=== PATIENT | female | born 1995 ===

== ENCOUNTER 2020-01-01 08:30 | Inpatient (IN) | payer OTHER ==
[2020-01-01] MEDS ORDERED: PROMETHAZINE HCL 25 MG/1 ML VIAL IVPUSH ONE (10:24)
[2020-01-01] MEDS ORDERED: BUTORPHANOL TARTRATE 1 MG/ML VIAL IVPB ONE (10:24)
[2020-01-01] MEDS ORDERED: DINOPROSTONE 10 MG VAGINAL SUPPOSITORY VG ONE (10:31)
--- NOTE | 2020-01-01 10:37 | HP ---
Past Medical History - Primary Care Physician PCP:: Floridalma Sanchez - Admission Chief Complaint: scheduled IOL due to GDMA1 History Source: Patient Limitations to Obtaining History: No Limitations - Past Medical History ...: 2 ...Para: 1 ... Weeks Gestation by Dates: 39.5 ...EDC by Sono: 01/03/20 - Past Surgical History Past Surgical History: Yes: Cholecystectomy Hx Myomectomy: No Hx Transabdominal Cerclage: No - Smoking History Smoking history: Never smoked - Alcohol/Substance Use Hx Alcohol Use: No History of Substance Use: reports: None - Social History Usual Living Arrangement: Yes: With Spouse History of Recent Travel: No Home Medications - Allergies Allergies/Adverse Reactions: Allergies Allergy/AdvReac Type Severity Reaction Status Date / Time No Known Allergies Allergy Verified 01/01/20 10:14 - Home Medications Home Medications: Ambulatory Orders Vitamins (Sjr) - 1 tab PO DAILY 01/01/20 Review of Systems - Review of Systems Constitutional: reports: No Symptoms Cardiovascular: reports: No Symptoms Respiratory: reports: No Symptoms Gastrointestinal: reports: No Symptoms Genitourinary: reports: No Symptoms Breasts: reports: No Symptoms Reported Musculoskeletal: reports: No Symptoms Neurological: reports: No Symptoms Psychiatric: reports: No Symptoms Physical Exam - Maternity Constitutional: Yes: Well Nourished, No Distress, Calm Cardiovascular: Yes: Regular Rate and Rhythm Lungs: Clear to auscultation Breast(s): Yes: WNL - Abdominal Exam/OB Fundal Height: 40 Number of Fetuses: Single Presentation: Vertex Contractions: No Monitor Mode: External Category: I - Vaginal Exam/OB Vaginal Bleeding: No Dilatation (cm): 0 Effacement (%): 0 Presentation: Vertex/Position Station: -3 - Physical Exam Musculoskeletal: Yes: WNL Extremities: Yes: WNL Edema: No ...Motor Strength: WNL Psychiatric: Yes: Alert, Oriented Assessment/Plan 24 y/o at 39w5d with GDMA1 scheduled for IOL. Fetus with lower thoracic hemivertebra - Neonatology notified. Admit to L&D Cervical ripening with cervidil
[2020-01-01 10:38] VITALS: BMI 31.3
[2020-01-01] MEDS ORDERED: AMPICILLIN - 2 GM in SODIUM CHLORIDE 100 ML IVPB ONE (10:38)
[2020-01-01] MEDS: ELECTROLYTE-148 SOLN 1,000 ML IV SCH (11:00)
[2020-01-01 13:06] LABS: BASO % 0.3 % (0-2.0); EOS % 1.2 % (0-4.5); HEMATOCRIT 36.8 % (32.4-45.2); HEMOGLOBIN 12.6 GM/dL (10.7-15.3); LYMPH % 16.4 % (8-40); MCH 32.1 pg (25.7-33.7); MCHC 34.2 g/dl (32.0-36.0); MEAN CELL VOLUME 94.1 fl (80-96); MEAN PLT VOLUME 8.2 fl (7.5-11.1); MONO % 4.8 % (3.8-10.2); NEUT % 77.3 % (42.8-82.8); PLATELET COUNT 274 K/MM3 (134-434); RBC 3.91 M/mm3 (3.60-5.2); RDW 15.5 % (11.6-15.6); WHITE BLOOD COUNT 8.9 K/mm3 (4.0-10.0)
[2020-01-01 13:15] LABS: INR 0.92 (0.83-1.09); PROTHROMBIN TIME (PATIENT) 10.8 SEC (9.7-13.0)
[2020-01-01 13:18] LABS: ACTIVATED PTT 28.3 SECONDS (25.2-36.5)
[2020-01-01 13:52] LABS: BLOOD UREA NITROGEN 6.6 mg/dL (7-18); CALCIUM 9.3 mg/dL (8.5-10.1); CREATININE 0.5 mg/dL (0.55-1.3); POTASSIUM 4.2 mmol/L (3.5-5.1)
[2020-01-01] MEDS ORDERED: AMPICILLIN - 1 GM in SODIUM CHLORIDE 100 ML IVPB SCH (14:30)
[2020-01-01] MEDS ORDERED: AMPICILLIN SODIUM 2 GM VIAL ONE (18:13)
[2020-01-01] MEDS ORDERED: AMPICILLIN SODIUM 1 GM VIAL ONE (22:08)
[2020-01-01] MEDS ORDERED: PROMETHAZINE HCL 25 MG/1 ML VIAL ONE (22:09)
[2020-01-01] MEDS ORDERED: BUTORPHANOL TARTRATE 2 MG/ML VIAL ONE (22:09)
[2020-01-01] MEDS: AMPICILLIN - 1 GM in SODIUM CHLORIDE 100 ML IVPB SCH (22:15)
--- NOTE | 2020-01-01 23:30 | PD.OB.PROG ---
Past Medical History - Primary Care Physician PCP:: Floridalma Sanchez Documenting Provider Type: Laborist - Admission Chief Complaint: for induction. 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 Weeks Gestation by Dates: 39.5 ...EDC by Dates: 01/03/20 ...EDC by Sono: 01/03/20 Heme/Onc: Denies/None Infectious Disease: Denies/None Psych: Denies/None Musculoskeletal: Denies/None Rheumatology: Denies/None ENT: Denies/None Endocrine: Denies/None Dermatology: Denies/None - Past Surgical History Past Surgical History: Yes: Cholecystectomy - Smoking History Smoking history: Never smoked - Alcohol/Substance Use Hx Alcohol Use: No History of Substance Use: reports: None - Social History History of Recent Travel: No Review of Systems - Review of Systems Constitutional: reports: No Symptoms Eyes: reports: No Symptoms HENT: reports: No Symptoms Neck: reports: No Symptoms Cardiovascular: reports: No Symptoms Respiratory: reports: No Symptoms Gastrointestinal: reports: No Symptoms Genitourinary: reports: No Symptoms Breasts: reports: No Symptoms Reported Musculoskeletal: reports: No Symptoms Integumentary: reports: No Symptoms Neurological: reports: No Symptoms Endocrine: reports: No Symptoms Hematology/Lymphatic: reports: No Symptoms Psychiatric: reports: No Symptoms Physical Exam - Obstetrical Vital Signs: Vital Signs Temperature 98.9 F 01/01/20 22:00 Pulse Rate 54 L 01/01/20 22:00 Respiratory Rate 18 01/01/20 22:00 Blood Pressure 116/71 01/01/20 22:00 O2 Sat by Pulse Oximetry (%) Constitutional: Yes: Well Nourished, No Distress, Calm Eyes: Yes: WNL, Conjunctiva Clear, EOM Intact HENT: Yes: WNL, Atraumatic, Normocephalic Neck: Yes: WNL, Supple, Trachea Midline Cardiovascular: Yes: WNL, Regular Rate and Rhythm Lungs: Clear to auscultation Breast(s): Yes: WNL - Abdominal Exam/OB Fundal Height: 40 Number of Fetuses: Single Presentation: Vertex Contractions: Yes Regularity: Regular Intensity: Mild/Mod Monitor Mode: External Heart Rate (range): 140 Heart Rate Location: [facility] Category: I Accelerations: Uniform Decelerations: None - Vaginal Exam/OB Vaginal Exam Deferred: No Vaginal Bleeding: No Dilatation (cm): 2 Effacement (%): 50 Amniotic Membrane Status: Intact Station: -2 (very posterior) - Physical Exam Musculoskeletal: Yes: WNL Extremities: Yes: WNL - Labs Lab Results: CBC, BMP 01/01/20 12:40 01/01/20 12:40 Problem List - Problems (1) Term Code(s): Z34.90 - ENCNTR FOR SUPRVSN OF NORMAL , UNSP, UNSP TRIMESTER (2) GDM (gestational diabetes mellitus), class A1 Code(s): O24.410 - GESTATIONAL DIABETES MELLITUS IN , DIET CONTROLLED (3) Encounter for induction of labor Code(s): Z34.90 - ENCNTR FOR SUPRVSN OF NORMAL , UNSP, UNSP TRIMESTER Assessment/Plan Pt examined. Responding to cervidil. New cervidil placed as requested by DR. Sanchez. Discussed w couple. May be ready for AROM, oxytocin in couple of hours.
[2020-01-02] MEDS: AMPICILLIN - 1 GM in SODIUM CHLORIDE 100 ML IVPB SCH ×4 (02:30→14:15)
[2020-01-02] MEDS ORDERED: AMPICILLIN SODIUM 1 GM VIAL ONE ×4 (02:47→14:26)
[2020-01-02] MEDS ORDERED: PROMETHAZINE HCL 25 MG/1 ML VIAL ONE (08:43)
[2020-01-02] MEDS ORDERED: BUTORPHANOL TARTRATE 2 MG/ML VIAL ONE (08:43)
--- NOTE | 2020-01-02 08:43 | PN ---
Progress Note (short form) - Note Progress Note: cervix 3cm 75% effeaced vertex -2 AROM light meconeum. tracing reactive with good variability accelerations no decelerations category I at 1450 BPM plan oxytocin augmentation as well as pain mangment.
[2020-01-02] MEDS ORDERED: PROMETHAZINE HCL 25 MG/1 ML VIAL IVPB ONE (08:44)
[2020-01-02] MEDS ORDERED: BUTORPHANOL TARTRATE 1 MG/ML VIAL IVPB ONE (08:44)
[2020-01-02] MEDS ORDERED: OXYTOCIN 30 UNITS in 0.9% NS 30 UNIT/500 ML INFUS.BAG IVPB SCH (08:45)
[2020-01-02] MEDS ORDERED: OXYTOCIN 30 UNITS in 0.9% NS 30 UNIT/500 ML INFUS.BAG IVPB ONE (09:06)
[2020-01-02] MEDS ORDERED: FENTANYL/BUPIVACAINE/NS/PF - PCEA - 50 ML DISP.SYRIN EP ONE (11:21)
[2020-01-02] MEDS ORDERED: NALOXONE HCL 0.4 MG/ML VIAL IVPUSH PRN (12:14)
[2020-01-02] MEDS ORDERED: FENTANYL/BUPIVACAINE/NS/PF - PCEA - 50 ML DISP.SYRIN EP SCH (12:15)
[2020-01-02] MEDS ORDERED: BUPIVACAINE HCL/PF 0.25% (2.5MG/ML) 10 ML VIAL ONE (12:19)
[2020-01-02] MEDS: ELECTROLYTE-148 SOLN 1,000 ML IV SCH (13:22)
[2020-01-02] MEDS ORDERED: CITRIC ACID/SODIUM CITRATE 30 ML UNIT-DOSE CUP PO ONE (14:28)
--- NOTE | 2020-01-02 14:28 | PN ---
Progress Note (short form) - Note Progress Note: tracing with persistent variable decelerations category II cervix 6 cm with head at -1 station remote from delivery plan delivery.
[2020-01-02] MEDS ORDERED: LIDO 2%/EPI 1:200000 PRESRVFRE (20 ML SDVIAL) ONE (14:55)
[2020-01-02] MEDS ORDERED: OXYTOCIN 20 UNITS in 0.9% NS 40 UNIT/2,000 ML INFUS.BAG IV ONE (15:00)
[2020-01-02] MEDS ORDERED: ceFAZolin SODIUM 1 GM VIAL ONE (15:14)
[2020-01-02] MEDS ORDERED: OXYTOCIN 10 UNITS/ML VIAL ONE (15:19)
[2020-01-02] MEDS ORDERED: morphine SULFATE/PF 0.5 MG/ML (2cc Syringe - QUVA) ONE ×3 (15:36)
[2020-01-02] MEDS ORDERED: ONDANSETRON 4 MG/2 ML VIAL IVPUSH PRN (15:42)
--- NOTE | 2020-01-02 15:50 | OP ---
Operative Note - Note: Operative Date: 01/02/20 Pre-Operative Diagnosis: non reassurring tracing remote from delivery Operation: primary section. pfanensteel abdominal. low transvers euterine incision Findings: baby girl Post-Operative Diagnosis: Same as Pre-op Surgeon: Bessy Lewis Rn Teacher: Rikki Hutson Anesthesia: Spinal Specimens Removed: none Estimated Blood Loss (mls): 600 Operative Report Dictated: Yes
[2020-01-02] MEDS ORDERED: CARBOPROST TROMETHAMINE 250 MCG/ML AMPUL IM ONE (15:53)
[2020-01-02] MEDS ORDERED: METHYLERGONOVINE MALEATE 0.2 MG/1 ML AMP IM ONE (15:54)
[2020-01-02] MEDS ORDERED: MISOPROSTOL 200 MCG TABLET NR ONE (16:30)
[2020-01-02] MEDS ORDERED: KETOROLAC TROMETHAMINE 30 MG/1 ML VIAL ONE (19:41)
[2020-01-02] MEDS: KETOROLAC TROMETHAMINE 30 MG/1 ML VIAL IVPB PRN (19:50)
--- NOTE | 2020-01-03 07:18 | PN ---
Progress Note (short form) - Note Progress Note: Anesthesia Procedure Note epidural catheter kept inplace post op because of post op bleeding from boggy uterus. After six hours, bleeding risk was deemed to be minimal and catheter was removed at bedside, tip in tact, site clean and dry.
[2020-01-03] MEDS: KETOROLAC TROMETHAMINE 30 MG/1 ML VIAL IVPB PRN ×2 (07:27→14:28)
[2020-01-03 08:43] LABS: BASO % 0.1 % (0-2.0); HEMATOCRIT 29.5 % (32.4-45.2); HEMOGLOBIN 9.6 GM/dL (10.7-15.3); MCH 31.1 pg (25.7-33.7); MCHC 32.7 g/dl (32.0-36.0); MEAN CELL VOLUME 94.9 fl (80-96); MONO % 6.1 % (3.8-10.2); NEUT % 85.8 % (42.8-82.8); PLATELET COUNT 194 K/MM3 (134-434); RDW 15.4 % (11.6-15.6)
--- NOTE | 2020-01-03 12:55 | PN ---
Post Progress Note Post Day: 1 Type of Delivery: Primary C/S Vital Signs: Vital Signs Temperature 98.5 F 01/03/20 10:00 Pulse Rate 90 01/03/20 10:00 Respiratory Rate 20 01/03/20 12:00 Blood Pressure 120/75 01/03/20 10:00 O2 Sat by Pulse Oximetry (%) 96 01/02/20 22:00 Breast Exam: Yes: Soft Uterus: Yes: Fundus Firm, Fundus below umbilicus, Non-tender Incision: Yes: Dressing dry and intact Abdomen/GI: Yes: Abdomen soft, Tolerating PO Lochia: Yes: Rubra Lochia, amount: Small Extremities: Yes: Calves non-tender Perineum: Yes: Intact Activity: Ambulating - Labs Labs: CBC WBC 13.0 K/mm3 (4.0-10.0) H 01/03/20 08:11 RBC 3.10 M/mm3 (3.60-5.2) L 01/03/20 08:11 Hgb 9.6 GM/dL (10.7-15.3) L 01/03/20 08:11 Hct 29.5 % (32.4-45.2) L D 01/03/20 08:11 MCV 94.9 fl (80-96) 01/03/20 08:11 MCH 31.1 pg (25.7-33.7) 01/03/20 08:11 MCHC 32.7 g/dl (32.0-36.0) 01/03/20 08:11 RDW 15.4 % (11.6-15.6) 01/03/20 08:11 Plt Count 194 K/MM3 (134-434) D 01/03/20 08:11 MPV 8.0 fl (7.5-11.1) 01/03/20 08:11 Absolute Neuts (auto) 11.2 K/mm3 (1.5-8.0) H 01/03/20 08:11 Neutrophils % 85.8 % (42.8-82.8) H 01/03/20 08:11 Lymphocytes % 8.0 % (8-40) D 01/03/20 08:11 Monocytes % 6.1 % (3.8-10.2) 01/03/20 08:11 Eosinophils % 0.0 % (0-4.5) D 01/03/20 08:11 Basophils % 0.1 % (0-2.0) 01/03/20 08:11 Nucleated RBC % 0 % (0-0) 01/03/20 08:11 Assessment/Plan S/P delivery, pod # 1, reports not passing flatus. Delayed return of bowel function Encourage ambulation and incentive spirometer Continue other management.
[2020-01-03] MEDS ORDERED: BISACODYL 10 MG SUPP.RECT RC PRN (15:51)
[2020-01-03] MEDS: ELECTROLYTE-148 SOLN 1,000 ML IV SCH (19:58)
[2020-01-03] MEDS: OXYTOCIN 20 UNITS in 0.9% NS 20 UNIT/1,000 ML INFUS.BAG IV SCH ×2 (19:58→19:59)
[2020-01-03] MEDS: IBUPROFEN 600 MG TABLET (FP) PO PRN (20:48)
[2020-01-03] MEDS: SIMETHICONE 80 MG TAB.CHEW (FP) PO PRN (20:48)
[2020-01-04] MEDS: IBUPROFEN 600 MG TABLET (FP) PO PRN ×2 (01:33→09:59)
[2020-01-04] MEDS: SIMETHICONE 80 MG TAB.CHEW (FP) PO PRN ×2 (01:33→10:00)
--- NOTE | 2020-01-04 06:29 | PN ---
Progress Note (short form) - Note Progress Note: Pt. seen and examined s/p under epidural anesthesia with epidural duramorph. Pt. doing well this am. No anesthesia related complications.
--- NOTE | 2020-01-04 08:03 | PN ---
Post Progress Note Post Day: 2 Type of Delivery: Primary C/S Vital Signs: Vital Signs Temperature 99.1 F 01/03/20 22:00 Pulse Rate 85 01/03/20 22:00 Respiratory Rate 18 01/03/20 22:00 Blood Pressure 119/77 01/03/20 22:00 O2 Sat by Pulse Oximetry (%) 96 01/02/20 22:00 Breast Exam: Yes: Soft Uterus: Yes: Fundus Firm, Fundus below umbilicus, Non-tender Incision: Yes: [place] intact Abdomen/GI: Yes: Abdomen soft, Tolerating PO Lochia: Yes: Rubra Lochia, amount: Small Extremities: Yes: Calves non-tender Perineum: Yes: Intact Activity: Ambulating - Labs Labs: CBC WBC 13.0 K/mm3 (4.0-10.0) H 01/03/20 08:11 RBC 3.10 M/mm3 (3.60-5.2) L 01/03/20 08:11 Hgb 9.6 GM/dL (10.7-15.3) L 01/03/20 08:11 Hct 29.5 % (32.4-45.2) L D 01/03/20 08:11 MCV 94.9 fl (80-96) 01/03/20 08:11 MCH 31.1 pg (25.7-33.7) 01/03/20 08:11 MCHC 32.7 g/dl (32.0-36.0) 01/03/20 08:11 RDW 15.4 % (11.6-15.6) 01/03/20 08:11 Plt Count 194 K/MM3 (134-434) D 01/03/20 08:11 MPV 8.0 fl (7.5-11.1) 01/03/20 08:11 Absolute Neuts (auto) 11.2 K/mm3 (1.5-8.0) H 01/03/20 08:11 Neutrophils % 85.8 % (42.8-82.8) H 01/03/20 08:11 Lymphocytes % 8.0 % (8-40) D 01/03/20 08:11 Monocytes % 6.1 % (3.8-10.2) 01/03/20 08:11 Eosinophils % 0.0 % (0-4.5) D 01/03/20 08:11 Basophils % 0.1 % (0-2.0) 01/03/20 08:11 Nucleated RBC % 0 % (0-0) 01/03/20 08:11 Assessment/Plan S/P delivery, with slow return of bowel function Encourage ambulation and incentive spirometer Continue other management.
[2020-01-04 09:34] VITALS: BP 112/75; PULSE 96; TEMP 98
--- NOTE | 2020-01-04 11:49 | OP ---
DATE OF OPERATION: 01/02/2020 PREOPERATIVE DIAGNOSIS: Nonreassuring tracing distant from delivery. POSTOPERATIVE DIAGNOSIS: Nonreassuring tracing distant from delivery. PROCEDURE: Primary section through a Pfannenstiel abdominal low transverse uterine incision. SURGEON: Trenton Villaseñor MD RESIDENTIAL RECYCLE DRIVER: Rikki Hutson MD ANESTHESIA: Spinal. PROCEDURE: Following the successful induction of spinal anesthesia, patient placed in dorsal supine position, was prepped and draped in the usual aseptic fashion for this type of procedure. A Pfannenstiel abdominal incision was made and was carried down to the level of the fascia. Fascia was identified and entered. Peritoneum was identified and entered. Upon entering the peritoneal cavity uterus was identified and a bladder flap was created using smooth pickups and Metzenbaum scissors. Following this, a low transverse uterine incision was made and a baby girl was delivered to the endodontic assistant in attendance. The cord was wrapped around the neck tight x1. Following this, placental membranes were removed and the intrauterine contents were cleaned using a dry lap pad. Then the uterine incision was identified using T clamps, then was closed No. 1 Vicryl in a continuous stitch locking every stitch. There was excellent hemostasis at the end of the procedure. At this time the uterus was noted to be boggy. Patient was given Methergine IM. The uterus was massaged followed by 250 mcg of Hemabate . Following this, the fascia was closed using No. 1 Vicryl in a continuous stitch locking every stitch. Skin incision was then closed using michela. Following this, 800 mg of Cytotec were placed in the patient's rectum for prevention of hemorrhage. Case was then terminated. All instruments were removed. Bandages were applied and case was terminated. Correct counts x2. TRENTON VILLASEÑOR MD /[id number]
--- NOTE | 2020-01-04 15:41 | DS ---
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: Vital Signs Temperature 98 F 01/04/20 09:00 Pulse Rate 96 H 01/04/20 09:00 Respiratory Rate 18 01/04/20 09:00 Blood Pressure 112/75 01/04/20 09:00 O2 Sat by Pulse Oximetry (%) 96 01/02/20 22:00 Constitutional: Yes: Well Nourished Eyes: Yes: WNL HENT: Yes: WNL Neck: Yes: WNL Cardiovascular: Yes: WNL Respiratory: Yes: WNL Internal Exam Deferred: Yes Uterus: Yes: Firm ....Post : Yes: Uterus non-tender, Slight lochia rubra Edema: No Labs: CBC, BMP 01/03/20 08:11 01/01/20 12:40 Delivery - Delivery Section: Primary Type of Anesthesia: Epidural Episiotomy/Laceration: None EBL (cc): 600 Delivery, Single - Stages of Labor Date 1st Stage Initiatied: 01/01/20 Time 1st Stage Initiated: 22:00 Date of Delivery: 01/02/20 Time of Delivery: 15:22 Time Placenta Delivered: 15:24 - Condition of Infant 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: Yes Name: Pily Velazquez Gender: Female Weight: 3.657 kg Position: Right, OT Total Hours ROM (Hrs/Mins): 6hrs 42min - 1 Minute Total Score: 9 5 Minutes Total Score: 9 - [place] Feeding Plan Initial Plan: Elected not to breastfeed exclusively throughout hospitalization Remarks - Remarks Remarks: primary c section by Dr Lewis for category 2 tracing Discharge Summary Problems reviewed: Yes Reason For Visit: INDUCTION OF LABOR Current Active Problems Encounter for induction of labor (Acute) GDM (gestational diabetes mellitus), class A1 (Acute) Term (Acute) Condition: Good - Instructions - Home Medications Comprehensive Discharge Medication List: Ambulatory Orders Vitamins (Sjr) - 1 tab PO DAILY 01/01/20 Prescription Drug Monitoring Program (I-STOP) results: I-STOP reviewed and no issues identified (office visit Saturday or Saturday)
--- NOTE | 2020-01-07 18:43 | PATH ---
Surgical Pathology Report Patient Name: RICHY EDOUARD Med. Rec. 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 Specimen(s) Received PLACENTA Clinical History , 39.6 gestational weeks, nonreassuring heart rate Final Diagnosis PLACENTA, SECTION: 450 G THIRD TRIMESTER PLACENTA WITH TRIVASCULAR UMBILICAL CORD AND UNREMARKABLE PLACENTAL MEMBRANES. Electronically Signed Luz Prescott M.D. Gross Description The specimen is received fresh labeled placenta and is a 450 gram, 17.5 x 15.5 x 2.8 cm. placenta with attached membranes and umbilical cord. The attached membranes are munoz, translucent with focal opacities and insert marginally. The umbilical cord measures 36 cm. in length and averages 1 cm. in diameter. The cord inserts eccentrically, 4.5 cm. to the nearest margin. No true knots or strictures are identified. Cut surface of the umbilical cord reveals 3 vessels. The surface is resendez-blue with minimal fibrin deposition and appropriate caliber vessels. The maternal surface is red-brown with focal defects. Sectioning reveals red-brown, spongy parenchyma. No lesions are identified. Egyptologist sections are submitted in three cassettes as follows: 1- membrane rolls and umbilical cord; 2-3- full thickness sections of placenta. 01/06/2020 [facility]01/06/2020
== END 2020-01-04 16:45 | disposition home or self-care (01) | DRG 540 ==
LOC: JLDR 08:30 → J3W 01-02 20:30
PROVIDERS: ADMIT Obstetrics & Gynecology; ATTEND Obstetrics & Gynecology
PROC: 3E0P7VZ Introduction of Hormone into Female Reproductive, Via Natural or Artificial Opening (ICD-10-PCS; 2020-01-01)
PROC: 10D00Z1 Extraction of Products of Conception, Low, Open Approach (ICD-10-PCS; principal; 2020-01-02)
PROC: 10907ZC Drainage of Amniotic Fluid, Therapeutic from Products of Conception, Via Natural or Artificial Opening (ICD-10-PCS; 2020-01-02)
DX: O82 Encounter for cesarean delivery without indication (principal); O76 Abnormality in fetal heart rate and rhythm complicating labor and delivery; O24.420 Gestational diabetes mellitus in childbirth, diet controlled; Z3A.39 39 weeks gestation of pregnancy; Z37.0 Single live birth; O69.81X0 Labor and delivery complicated by cord around neck, without compression, not applicable or unspecified; O99.824 Streptococcus B carrier state complicating childbirth; O77.0 Labor and delivery complicated by meconium in amniotic fluid; Z90.49 Acquired absence of other specified parts of digestive tract
CPT/HCPCS: 36415; 80048; 82962; 85025; 85610; 85730; 86780; 86850; 86900; 86901; 88307-TC